=== PATIENT | female | born 1955 | race Caucasian/White ===

== ENCOUNTER 2023-03-13 16:15 | Outpatient (RCR) | payer MEDICARE, SELFPAY ==
--- NOTE | 2023-02-08 07:26 | PT.OPDNX ---
PT [facility] Out[facility] Daily Note PT [facility] Outpatient Daily Note Start: 10/26/22 07:45 Freq: Status: Active Protocol: Document 02/07/23 08:00 AMS (Rec: 02/07/23 16:46 AMS [id number]) E-signed By Rhonda Ramirez, PT PT OP Daily Progress Note Visit Information Note Type Daily Note,Recert/Progress Note,Re-Evaluation Visit Number [id number] Physician Authorized Visits Eval and treat Insurance Information Recert Due Date 04/15/23 Insurance Name [facility] [employer] Insurance Information/Comments [facility] Medical Diagnosis Right knee IT band syndrome Treating Diagnosis Right knee pain, limited hip/ knee ROM, soft tissue restriction Referring MD Sagastume Subjective Subjective Patient states her lateral hip and posterior buttock symptoms have improved overall , but now feels it more in her posterior knee. This started approximately 1-2 weeks ago without any change in routine or identifiable injury. Denies numbness or tingling. Increased pain with going downstairs > upstairs and difficulty bending her knee when she does. Has to lock her knee to go down the stairs to avoid pain. She is here due to feeling like symptoms have not resolved completely and significant increase in posterior knee pain. Does have some knee arthritis on imaging, but this hasn't bothered her in the past. Does have some audible painless crepitus bilaterally. Describes posterior knee pain as sometimes moving down to the lateral ankle, especially with driving. Aggravating factors include pressing down on gas pedal, performing stairs, walking, and squatting . No change in symptoms with coughing or sneezing, no back pain. Denies locking, clicking or catching. No swelling that she has noticed. Pain Comments 0/10 at rest, 9 or 10/10 at worst w/ movement Precautions Treatment Precautions/Contraindications PMH: heart condition ( ventricular premature beats, palpitations), arthritis Home Exercise Home Exercise Comments Access Code: [email or web address] URL: [email or web address] Date: 02/07/2023 Prepared by: Rhonda Ramirez Exercises - Seated Isometric Knee Extension - 1 x daily - 7 x weekly - 3 sets - 30-45 seconds hold - Hamstring Bridge - 1 x daily - 4 x weekly - 3 sets - 12 reps Objective Other/Pertinent Objective GAIT ASSESSMENT: Ambulates with heel-toe, non-antalgic gait, decreased right knee flexion OBSERVATION: Swelling: None noted FUNCTIONAL MOBILITY Double leg squat: To 90, pain w/ deeper knee flexion, quad dominant Step down: Poor eccentric control on right KNEE ROM R: 5-0-140 L: 5-0-140 HIP ROM All pain-free and WNL LUMBAR ROM Full and pain-free LLE MMT: Hip flexion: R 4/5 L 5/5 Hip abduction: R 4/5 L 5/5 Hip extension: R 4+/5 L 5/5 Knee flexion: R */5 (strong but painful) L 5/5 Knee extension: R */5 (strong but painful) L 5/5 END RANGE QUAD CONTROL Straight leg raise: No quad lag noted, WNL Heel pop: Symmetrical, pain- free SPECIAL TESTS Knee Ligamentous: -Varus 0: - -Varus 30: + for pain, no laxity -Valgus 0: - -Valgus 30: - -Lachmans: - Knee Meniscus: -Deep Knee Bend: + -Knee Hyperextension: - -Tony?s: -, mild soreness -Joint Line Palpation: - JOINT MOBILITY/PALPATION TTP over posterior knee over lateral hamstring insertion, mild TTP over ITB, otherwise no other TTP Patient Instructed in Risks/Benefits Yes Therapeutic Exercise Therapeutic Exercise Minutes (minutes) 15 Therapeutic Exercise: To Restore Patient was educated on Functional Status anatomy, physiology as it relates to current condition and HEP with use of handout/ [employer]. Patient verbalizes understanding and agrees with POC/goals Education: -POC with review of goals and progress since start of PT -Soreness rules with goal of symptoms returning to baseline within 24 hours and that evening Pt educated in the following exercises to improve range of motion, tissue tolerance, and/ or strength with verbal/ tactile cues as necessary: Access Code: [email or web address] URL: [email or web address] Date: 02/07/2023 Prepared by: Rhonda Ramirez Exercises - Seated Isometric Knee Extension - 1 x daily - 7 x weekly - 3 sets - 30-45 seconds hold - Supine Bridge - 1 x daily - 4 x weekly - 3 sets - 12 reps -Also briefly trialed isometric wall sits, which was uncomfortable in bilateral knees w/ crepitus Treatment Minutes Untimed Code Treatment Minutes 25 Timed Code Treatment Minutes 15 Total Treatment Time 40 Billing Units Therapeutic Exercise Units 1 Re-Evaluation Units 1 Assessment/Impression Assessment/Impression Allan returns to physical therapy with near resolution of posterior buttock/lateral hip symptoms, but significant increase in pain localized over posterior knee. Of note, patient has been imaged before , which showed bilateral knee arthritis, but this hasn't bothered her much in the past. No known injuries when symptoms worsened one or two weeks ago. On exam, patient demonstrates full and pain- free knee ROM, normal hip/ lumbar exam, no visible swelling, pain with resisted hamstring and quad activation as well as varus testing, no laxity with ligament testing, and decreased eccentric quad control, leading to difficulties going down > upstairs, squatting, driving ( hitting gas pedal), and walking longer distances. Updated HEP to include quad/ hamstring loading within tolerance and will reassess in 2 weeks. Patient would benefit from continued skilled PT services to address above deficits. Plan of Care Physical Therapy Goals In 4 weeks (11/23/22) Pt will be able to ascend/ descend 1 flight of stairs with reciprocal gait in order to perform ADLs pain free. PROGRESSING Pt will demonstrate full and pain free knee and hip ROM in order to perform all ADLs including don/doffing shoes/ socks In 8 weeks (12/21/22) MET Pt will be able to walk greater than 60 minutes, including A/D hills with <1/10 knee pain in order to negotiate farm PROGRESSING Pt will exhibit 9 pt improvement in LEFS Outcome measure to demonstrate functional improvement and progress towards goals. PROGRESSING Daily Plan of Care Continue per POC Daily Plan of Care Comments Progress quad/hamstring loading as tolerated Recertification Information Initial Certification Date 01/20/23 Recertification Start Date 01/20/23 Recertification Due Date 04/15/23 Reasons to Continue Skilled Therapy Patient is a 67 year old female that was originally referred to therapy with diagnosis of right ITB syndrome. Patient reports almost complete improvement of posterior buttock/lateral hip symptoms with skilled physical therapy services. She reports back to therapy with significant worsening of posterior knee pain 1-2 weeks ago without any known re- injury. Demonstrates pain with resisted hamstring/quad contraction. Patient has shown improvement in physical therapy, demonstrating decreased pain, increased range of motion, increased strength, and increased tolerance to activity and load . Patient continues to present with pain, decreased strength , and decreased tolerance to activity. Patient would benefit from continued skilled PT services to address these issues and to maximize function. Continued Plan of Care and Interventions Joint mobilizations Gait training Therapeutic exercise Manual therapy Provider Signature Shows Agreement With POC & Medical Necessity
== END 2023-05-26 17:24 | disposition home or self-care (01) ==
PROVIDERS: PCP Family Medicine; Visit Provider Orthopaedic Surgery
DX: M76.31 Iliotibial band syndrome, right leg (principal); M25.561 Pain in right knee; Z74.09 Other reduced mobility; Z51.89 Encounter for other specified aftercare
CPT/HCPCS: 97110; 97140; 97161; 97164

== ENCOUNTER 2023-10-27 11:30 | Outpatient (RCR) | payer MEDICARE, SELFPAY ==
--- NOTE | 2023-09-22 14:20 | PT.OPEX ---
PT [facility] Eval PT [facility] Outpatient Eval Start: 09/22/23 08:50 Freq: Status: Active Protocol: Document 09/22/23 08:51 AMS (Rec: 09/22/23 14:16 AMS [id number]) E-signed By Rhonda Ramirez PT Physical Therapy Outpatient Evaluation Insurance Information Recert Due Date 12/16/23 Insurance Name Medicare B Medical Diagnosis Left hip bursitis Treating Diagnosis Left hip pain Muscle weakness Referring MD Gadiel Sagastume MD Subjective Subjective Patient is a 67-year-old female who returns to physical therapy for left lateral hip pain. She states she bumped it on a countertop a few months ago in May, and it has been hurting since then; did notice some bruising at this time that has since resolved. It's been getting better since then. She has had ongoing difficulty with right anterior and medial knee pain, but no more lateral right hip pain; X -rays from 06/13 showed end- stage patellofemoral joint arthritis bilaterally. She just had a steroid injection in her knee on 08/29. She reports this was somewhat helpful. PMHx significant for L hip femoral neck fracture in 2018 managed surgically; recent X-rays show this remains stable. Also notes some mild low back pain that has been going on for about a week after lifting a heavier object. Denies N/T or locking, clicking/catching. Pain characteristics: Localized to the lateral posterior hip, feels achey with certain movements/ activities, eases with rest, tender to pressure Aggravating factors: sitting funny, lying on left side, leaning onto it/pressure over it. Walking/stairs do not bother it. Easing factors: Rest, rubbing muscle rub on it. Previous treatments: Has had injections in 2019 after ORIF surgery, none since then Current functional limitations : lying on left side, leaning on it, sitting Imaging: AP Pelvis and Cross- table lateral views of the left hip were obtained on from [facility], were ordered by a different physician, were reviewed by me, and show cannulated screw fixation of previous femoral neck fracture which is now healed. Flattening of the femoral head on the left with mild joint space narrowing of both hips, consistent with mild to moderate hip osteoarthritis bilateral. No fractures or acute osseous abnormalities. Compared to x-rays obtained , there has been interval healing of the left subcapital femoral neck fracture. Screws remain well positioned with no evidence of loosening or other complications. No significant progression of hip degenerative changes. -Dr. Smith, 06/20/23 PMHx: see below Social history/current exercise: She is currently sedentary, tries to go on walks in town a few times per week to peruse the shops. No other formal exercise or strength training. Goals: Less pain in left hip Pain Comments 0/10 at best/rest 5/10 at worst, short lasting Date of Last Physician Visit 08/30/23 Current Work Status Retired Occupation Retired Preferred Name Allan Precautions Treatment Precautions/Contraindications Arthritis GERD (gastroesophageal reflux disease) Elevated cholesterol Ventricular premature beats Palpitations S/P ORIF (open reduction internal fixation) fracture of left hip 06/22/17 Objective Other/Pertinent Objective Gait assessment: Ambulates with normalized gait. BALANCE Single leg stance: R 14.87 sec , L 22 sec FUNCTIONAL MOBILITY Double leg squat: To 45 deg, no hip pain, R anterior/medial knee pain, quad dominant KNEE ROM L: 0-0-138 R: 0-0-135 END RANGE QUAD CONTROL Straight leg raise: Independent without quad lag LUMBAR ROM Full and pain-free with exception of mild limitation into B sidebending (to mid- thigh) and extension HIP ROM Flexion: 110/110 Extension: 15/15 Internal Rotation: Moderately limited L, mildly limited R External Rotation: 45/45 Abduction: WNL LE MMT: Hip flexion: R 4+/5 L 4+/5 Hip abduction: R 4-/5 L 3+/5 Hip extension: R 4-/5 L 4-/5 Knee flexion: R 4+/5 L 4/5 Knee extension: R 4+/5 L 4+/5 SPECIAL TEST Hip Labral/Intra-articular Pathology: -ELSI: - -FADIR: - -Log Roll: - Hip impingement: -[place]: - JOINT MOBILITY/PALPATION: Mild tenderness to palpation just distal to greater trochanter and over ITB. No TTP over greater trochanter, lumbar spine, or posterior gluteals. Functional Test Performed & Score LEFS: 74/80 = 92.5% Assessment Assessment/Impression Pt is a 67 -year-old female who presents with concerns of chronic left lateral hip pain and low severity and irritability. Patient referred to therapy with diagnosis of left hip bursitis. Symptoms began after bumping her hip against a countertop in May with subsequent bruising that has since resolved. X-rays were unremarkable. PMHx significant for left hip fracture with ORIF in 2018 and bilateral knee arthritis. Symptoms have been improving overall. On exam, patient also demonstrates notable objective findings including mildly limited hip IR ROM bilaterally without pain, normal lumbar exam, pain-free hip ROM, mild tenderness over lateral hip/ gluteals and ITB, and decreased hip strength, leading to difficulties with lying on her left side, sitting, and leaning to her left side. No hip pain with walking, stairs, or standing. Pt benefits from reassurance regarding symptoms and is able to complete strengthening exercises without pain. Patient is appropriate for skilled physical therapy services to address the above deficits. Pt was agreeable with plan of care and goals established. Primary Functional Limitations lying on her left side, sitting, and leaning to her left side Plan of Care Rehabilitation Potential Good Physical Therapy Goals In 2 sessions: Pt will demonstrate consistent HEP compliance to ensure progress in reaching established goals during course of care. In 6-8 sessions: Patient is able to sleep with waking 0-1 times per week due to pain. Pt will sit > 1 hour without onset of hip pain. Pt will improve hip strength to >4/5 with MMT for hip abduction/extension for long- term management of symptoms. Coordination/Communication With Referral Source Treatment Plan/Direct Interventions Joint Mobilization,Manual Therapy,Neuromuscular Re-ed, Self-Care/Home Management, Therapeutic Activities, Therapeutic Exercises Frequency/Duration 1x/week for 6-8 sessions Patient Will Be Discharged From Therapy Completion of LTG(s), Independent w/HEP, Independently Progressing Evaluation Billing Untimed Code Treatment Minutes 25 Complexity Low Certification Information Initial Certification Date 09/22/23 Ending Certification Date 12/16/23 Provider Signature Shows Agreement With POC & Medical Necessity Physician Signature & Date Requested Please Sign/Date Here Physician Comment/Change : Physician NPI Number #
== END 2023-10-31 09:47 | disposition home or self-care (01) ==
PROVIDERS: PCP Family Medicine; Visit Provider Orthopaedic Surgery
DX: M70.72 Other bursitis of hip, left hip (principal); M25.552 Pain in left hip; M62.81 Muscle weakness (generalized); Z51.89 Encounter for other specified aftercare
CPT/HCPCS: 97110; 97140; 97161

== ENCOUNTER 2024-10-24 14:55 | Emergency (ER) | payer MEDICARE, SELFPAY ==
[2024-10-24 15:04] VITALS: BP 156/73; PULSE 78; RESP 16; TEMP 36.8; O2SAT 95; BMI 23.0
[2024-10-24 16:14] VITALS: BP 102/54; PULSE 66; RESP 20; O2SAT 95
--- NOTE | 2024-10-24 16:17 | ED_ITS ---
HPI - General Adult General Date Seen: 10/24/24 Chief complaint: Unspecified Complaint, Adult Stated complaint: pvcs Time Seen by Provider: 10/24/24 15:58 Source: patient Mode of arrival: ambulatory Limitations: no limitations History of Present Illness HPI narrative: Patient is a 69-year-old female presenting to the emergency department for concerns of palpitation. She was seen at the [facility] in [place] yesterday for similar symptoms. She states she will feel like she will have palpitations with intermittent pauses. Symptoms started yesterday and they seem to get better throughout the afternoon but occurred again today. She was told she has PVCs into return for re-evaluation if symptoms persist. She continues to have the palpitations so she came in. Denies feeling lightheaded. Denies any chest pain or shortness of breath. Denies any recent sickness. Is currently on flecainide for paroxysmal AFib. Has had reveals 0 patches which she was told had PVCs on them before. Denies any stressors. No other concerns noted Related Data Home Medications ?Medication ?Instructions ?Recorded ?Confirmed flecainide 50 mg tablet 50 mg PO 10/20/22 08/30/23 metoprolol succinate 25 mg mg PO .Bedtime 10/20/22 08/30/23 tablet,extended release 24 hr simvastatin 20 mg tablet 10 mg PO .Bedtime 10/20/22 10/24/24 famotidine 20 mg tablet 20 mg PO BID 06/13/23 10/24/24 Allergies Allergy/AdvReac Type Severity Reaction Status Date / Time No Known Drug Allergies Allergy Verified 10/24/24 15:04 Review of Systems Status of ROS: Reports: 10 or more systems reviewed and unremarkable except as noted in History and below [facility] Medical History Arthritis ?M19.90 - Unspecified osteoarthritis, unspecified site (ICD-10) GERD (gastroesophageal reflux disease) ?K21.9 - Gastro-esophageal reflux disease without esophagitis (ICD-10) Elevated cholesterol ?E78.00 - Pure hypercholesterolemia, unspecified (ICD-10) Ventricular premature beats ?I49.3 - Ventricular premature depolarization (ICD-10) Palpitations ?R00.2 - Palpitations (ICD-10) Fracture of right distal radius ?S52.501A - Unspecified fracture of the lower end of right radius, initial encounter for closed fracture (ICD-10) Surgical History Previous section ?Z98.891 - History of uterine scar from previous surgery (ICD-10) S/P ORIF (open reduction internal fixation) fracture (06/22/17) ?Z98.890 - Other specified postprocedural states (ICD-10) ?Z87.81 - Personal history of (healed) traumatic fracture (ICD-10) Social History Smoking Status: Never smoker Do you use any of these nicotine containing products: None Second hand tobacco smoke exposure: No Exam Narrative: Exam Narrative: Const: Well-nourished, Well-developed, in no distress Eyes: PERRL, no conjunctival injection, and symmetrical lids HENT: Atraumatic external nose and ears. Moist mucous membranes. Neck: Symmetric, trachea midline, No thyromegaly. CVS: RRR, No murmurs or gallops. Peripheral pulses 2+ and equal in all extremities RESP: Unlabored respiratory effort. Clear to auscultation bilaterally. GI: Nontender/Nondistended, No rebound or guarding. MSK:Extremities w/o deformity, Normal Active ROM Skin: Warm, Dry. No rashes or lesions. Neuro: Normal Muscle tone, No focal neurological deficits. Psych: Awake, Alert, & Oriented x3. Appropriate mood and affect. Const: Vital Signs, click to edit/add: Vital Signs - 24 hr 10/24/24 15:04 Temperature 98.3 F Pulse Rate [Pulse Oximeter] 78 Respiratory Rate 16 Blood Pressure [Ri ght Upper Arm] 156/73 H Pulse Oximetry 95 Oxygen Delivery Me thod Room Air Course Vital Signs Vital signs: Initial Vital Signs Temperature 98.3 F 10/24/24 15:04 Temperature Source Temporal Artery Scan 10/24/24 15:04 Pulse Rate 78 10/24/24 15:04 Respiratory Rate 16 10/24/24 15:04 Blood Pressure 156/73 H 10/24/24 15:04 Blood Pressure Mean 100 10/24/24 15:04 Pulse Oximetry 95 10/24/24 15:04 Oxygen Delivery Method Room Air 10/24/24 15:04 Vital Signs Temperature 98.3 F 10/24/24 15:04 Pulse Rate 78 10/24/24 15:04 Respiratory Rate 16 10/24/24 15:04 Blood Pressure 156/73 H 10/24/24 15:04 Pulse Oximetry 95 10/24/24 15:04 Oxygen Delivery Method Room Air 10/24/24 15:04 Temperature 98.3 F 10/24/24 15:04 Pulse Rate 78 10/24/24 15:04 Respiratory Rate 16 10/24/24 15:04 Blood Pressure 156/73 H 10/24/24 15:04 Pulse Oximetry 95 10/24/24 15:04 Oxygen Delivery Method Room Air 10/24/24 15:04 Medical Decision Making MDM Narrative Medical decision making narrative: Patient is a 69-year-old female presenting to the emergency department for concerns of palpitations. She states she was told these palpitations are from PVCs. Is not symptomatic at this time. Will check an EKG to look for any arrhythmias along during a BMP, CBC, magnesium, troponin. Place her on quality assurance monitor final. lab work returned showing no concerning abnormalities. EKG shows no concerning findings. There are PVCs as previously mentioned. On my review vital signs are stable throughout time in in the emergency department. Oximetry stayed in the mid to high 90s. front desk monitor showed no concerning arrhythmias. she is doing well I spoke to her about a zio patch. after shared decision-making she declined at this time by informed her that this persist may not hurt to follow- up with the primary care provider to get 1. She is agreeable to this plan Lab Data Labs: Lab Results 10/24/24 Range/Units 16:50 WBC 6.22 (4.50-11.00) K/uL RBC 4.40 (4.00-5.20) m/uL Hgb 13.4 (12.0-16.0) gm/dL Hct 41.2 (33.0-51.0) % MCV 94 (80-100) fL MCH 31 (26-34) pg MCHC 33 (32-36) gm/dL RDW Coeff of Otoniel 13.0 (11.5-15.5) % Plt Count 286 (140-440) K/uL Neut % (Auto) 55.4 (42.0-72.0) % Lymph % (Auto) 28.8 (20-44) % [place] % (Auto) 13.7 H (0.0-11.0) % Eos % (Auto) 1.3 (0.0-7.0) % Baso % (Auto) 0.6 (0.0-3.0) % Neut # (Auto) 3.45 (1.7-7.0) K/uL Lymph # (Auto) 1.79 (0.90-2.90) K/uL [place] # (Auto) 0.90 (0.00-0.90) K/UL Eos # (Auto) 0.08 (0.00-0.50) K/uL Baso # (Auto) 0.04 (0.00-0.30) K/uL Abs Immat Gran (auto) 0.01 (0.00-0.30) K/uL Imm/Tot Granulo (auto) 0.2 % Sodium 141 (135-149) mmol/L Potassium 4.4 (3.6-5.1) mmol/L Chloride 106 (96-114) mmol/L Carbon Dioxide 28 (20-32) mmol/L Anion Gap 7 (7-15) mEq/L BUN 16 (7-30) mg/dL Creatinine 0.8 (0.5-1.5) mg/dL Estimated Creat Clear 54.32 Estimated GFR 80 ml/min Glucose 83 (60-115) mg/dL Calcium 9.2 (8.4-10.6) mg/dL Magnesium 2.3 (1.5-2.6) mg/dL Troponin I < 0.01 (0.01-0.04) ng/mL ECG Data Attestation: I personally reviewed and interpreted this ECG as follows: Prior ECG tracings: not available for review Interpretation: normal sinus rhythm with a rate of 61 beats per minute, normal intervals, norm al axis, no ST or T-wave abnormalities. There are PVCs. Discharge Plan Discharge Clinical Impression: Frequent PVCs Patient Disposition: Home, Self-Care Condition: Stable Instructions: Premature Ventricular Contractions (ED) Additional Instructions: if you continue to have these palpitations I recommend following up with the primary care provider again about a possible heart monitor. Return to emergency department for new or worsening symptoms Prescriptions: No Action famotidine 20 mg tablet 20 mg PO BID metoprolol succinate 25 mg tablet extended release 24 hr PO .Bedtime flecainide 50 mg tablet 50 mg PO simvastatin 20 mg tablet 10 mg PO .Bedtime Follow Up/Referrals: Breanna Ayers MD [Primary Care Provider] - Stand Alone Forms: [employer] Info Instructions
[2024-10-24 16:54] LABS: Basophils Absolute Auto 0.04 K/uL (0.00-0.30); Basophils Percent Auto 0.6 % (0.0-3.0); Eosinophils Absolute Auto 0.08 K/uL (0.00-0.50); Eosinophils Percent Auto 1.3 % (0.0-7.0); Hematocrit 41.2 % (33.0-51.0); Hemoglobin* 13.4 gm/dL (12.0-16.0); Immature Granulocytes Abs Auto 0.01 K/uL (0.00-0.30); Immature Granulocytes Pct Auto 0.2 %; Lymphocytes Absolute Auto 1.79 K/uL (0.90-2.90); Lymphocytes Percent Auto 28.8 % (20-44); Mean Corpuscular HGB Conc 33 gm/dL (32-36); Mean Corpuscular Hemoglobin 31 pg (26-34); Mean Corpuscular Volume 94 fL (80-100); Monocytes Percent Auto 13.7 % (0.0-11.0); Neutrophils Absolute Auto 3.45 K/uL (1.7-7.0); Neutrophils Percent Auto 55.4 % (42.0-72.0); Platelet Count* 286 K/uL (140-440); White Blood Count* 6.22 K/uL (4.50-11.00)
[2024-10-24 16:57] LABS: Slide Review Reflex No
[2024-10-24 17:07] VITALS: BP 103/70; PULSE 68; RESP 16; O2SAT 96
[2024-10-24 17:13] LABS: Chloride* 106 mmol/L (96-114); Potassium* 4.4 mmol/L (3.6-5.1); Sodium* 141 mmol/L (135-149)
[2024-10-24 17:16] LABS: Anion Gap 7 mEq/L (7-15); Blood Urea Nitrogen* 16 mg/dL (7-30); Calcium* 9.2 mg/dL (8.4-10.6); Carbon Dioxide* 28 mmol/L (20-32); Creatinine* 0.8 mg/dL (0.5-1.5); Est. Creatinine Clearance* 54.32; Estimated Glomerular Filt Rate 80 ml/min; Glucose* 83 mg/dL (60-115); Magnesium* 2.3 mg/dL (1.5-2.6)
[2024-10-24 17:37] LABS: Troponin I* < 0.01 ng/mL (0.01-0.04)
[2024-10-24 17:55] VITALS: BP 102/70; PULSE 62; RESP 16; O2SAT 96
== END 2024-10-24 17:53 | disposition home or self-care (01) ==
PROVIDERS: Emergency Provider Student in an Organized Health Care Education/Training Program; PCP Family Medicine
DX: I49.3 Ventricular premature depolarization (principal)
CPT/HCPCS: 36415; 80048; 83735; 84484; 85025; 99283; 99284

== ENCOUNTER 2025-03-13 11:29 | Outpatient (CLI) | payer MEDICARE, SELFPAY | END 2025-03-13 11:30 | disposition home or self-care (01) | PROVIDERS: PCP Family Medicine; Visit Provider Internal Medicine | DX: I49.3 Ventricular premature depolarization (principal) | CPT/HCPCS: 80048; 80076 ==

== ENCOUNTER 2025-06-08 09:31 | Emergency (ER) | payer MEDICARE, SELFPAY ==
--- OUTSIDE RECORDS SUMMARY | 2025-06-08 09:33 | XMS_ITS | Clinical Summary ---
Author Organization [facility] Address [address] [place] [address] Care Team Providers Care Furniture Delivery Driver Name Role Phone Breanna Ayers MD Primary Care Prov ider Allergies No known active allergies Medications MedicationSigDispense QuantityRefillsLast FilledStart DateEnd DateStatus famotidine (PEPCID) 20 mg tablet Indications:Gastroesophageal reflux disease without esophagitisTake 1 Tablet (20 mg) by mouth two times daily. 180 Tablet 5Active metoprolol succinate (TOPROL XL) 25 mg Sustained-Release tablet Indications:Paroxysmal atrial tachycardia (HC)Take 1 Tablet (25 mg) by mouth once daily. Needs visit before next refill 90 Tablet 3095Active simvastatin (ZOCOR) 20 mg tablet Indications:DyslipidemiaTake 0.5 Tablets (10 mg) by mouth at bedtime. 45 Tablet 5Active flecainide (TAMBOCOR) 50 mg tablet Indications:Paroxysmal atrial tachycardia (HC)Take 1.5 Tablets (75 mg) by mouth every 12 hours. 270 Tablet 5Active Active Problems ProblemNoted DateDiagnosed DateParoxysmal uiqcrdrctkl85/30/2025Other osteoporosis without current pathological gazxrdgi41/29/2019Closed fracture of neck of left femur with routine drgxcxl4306/26/2017Osteoarthritis of hand, left 05/20/2013FH: colon kliqgx5911/01/2012 Overview (11/18/2013): Colonoscopy 10/2013 polyp repeat in 5 years Dyslipidemia Resolved Problems ProblemNoted DateDiagnosed DateResolved DateStatus post total replacement of left hipAnticoagulation monitoring, special range [Z79.01] Paroxysmal atrial rhxlyjbfyhz34/14/2023 Encounters DateTypeDepartmentCare KjpuThiluvyfndc23/20/2025Nurse Triage [facility] [address] [place] [address] Breanna Ayers MD Hand Tpxyfn7005/06/2025 8:40 AM CSTOffice Visit [facility] [address] [place] [address] Breanna Ayers MD Zvexzem3505/05/2025 10:00 AM CSTAncillary Procedure [facility] [address] [place] [address] 05/05/20257663Qwqcui86/13/2025Telephone [facility] [address] [place] [address] Breanna Ayers MD Other (Jury Duty )04/03/2025Refill [facility] [address] [facility] [address] [place] [phone] Ernie Chin MD Refill Request (Flecainide)03/27/2025Telephone [address] [place] [address] Ernie Chin MD Results (zio)03/25/2025Orders Only [facility] [address] [place] [address] Annelise Batres 2 scans: (2-Ord) DARWIN QUEVEDO MONITOR FINAL REPORT , Telephone [facility] [address] [facility] [address] [place] [phone] Ernie Chin MD FYI03/18/2025 9:05 AM CDTOffice Visit [facility] [address] [place] [address] Breanna Ayers MD Medicare ANNUAL (subsequent) Visit (69 yr/)03/18/2025Orders Only [facility] Scanner 1 scan: (1-Ord) INCOMING RECORDS-LABS, [facility], 5003/18/2025 Jxblqc6403/14/2025Orders Only [facility] Scanner 1 scan: (1-Ord) INCOMING RECORDS-LABS, [facility], 5003/13/2025 11:00 AM CDTOffice Visit [facility] [address] [place] [address] Ernie Chin MD from Last 3 Months Immunizations ImmunizationAdministration DatesNext DueCOVID-19 vaccine (Understory-BioNTech 30mcg/0.3mL) 12YO+ MAZIN-SUCROSE PF, MDV2COVID-19 vaccine (Understory- BioNTHarQen 30mcg/0.3mL) PF, MDV12/12/2020,11/21/2020Influenza RIV4 (Age 18+ Years) PRESERV FREE04/21/2021Influenza, High-dose Quadrivalent Hkilczrnofj73/03/2021, 04/02/2020,03/10/2017,03/08/2016Influenza, NFV142/07/2022,04/24/2022,03/04/2019, 03/20/2017Influenza, IIV4 (=>6mos) MDV02/15/2018,03/10/2017,03/08/2016Influenza, Inactivated IIV3 (Age 65+ Years) Preserv Free03/18/2025,03/13/2024neumococcal Conj 20-valent (Prevnar 20)03/13/2024Td (Age >=7 Years)09/18/1998Tdap11/01/2012, 08/01/2007 Family History Medical HistoryRelationNameCommentsAtrial fibrillationBrother 1Good Health Brother 2Good HealthDaughterCancer-colonFatherOtherMotheratrial fibrillationGood HealthSisterGood HealthSonCancer-breastNo Family HistoryCancer-ovarianNo Family HistoryDiabetesNo Family HistoryRelationNameStatusCommentsBrother 1Brother 2 DaughterFatherDeceasedMotherAliveSisterSon Social History Tobacco UseTypesPacks/DayYears UsedDateSmoking Tobacco: NeverSmokeless Tobacco: Never Tobacco Cessation:Counseling Given: No Alcohol UseStandard Drinks/WeekCommentsNo0 (1 standard drink = 0.6 oz pure alcohol)PHQ-2AnswerDate RecordedPHQ-2 TOTAL [id number] Connections AnswerDate RecordedDo you often feel lonely or isolated from those around you?0 08/27/2024Financial Resource StrainAnswerDate RecordedDifficulty of Paying Living Ysfjpkon502/11/2025Difficulty of Paying Living ExpensesNot on file 08/27/2024Food InsecurityAnswerDate RecordedDo you worry your food will run out before you are able to buy more?Transportation NeedsAnswerDate RecordedDoes lack of transportation keep you from medical appointments?1 08/27/2024Does lack of transportation keep you from work, meetings or getting things that you need?Housing StabilityAnswerDate RecordedWhat is your housing situation today?UtilitiesAnswerDate RecordedDo you have trouble paying for utilities (for example, heat, electricity, water, phone)?1 08/27/2024CommentsNoSex and Gender InformationValueDate RecordedSex Assigned at BirthNot on fileLegal ZxuNvanzw00/14/2013 8:24 AM CSTGender Identity Not on fileSexual OrientationNot on file Last Filed Vital Signs Vital SignReadingTime TakenCommentsBlood Ffjwxfyt296/7405/06/2025 8:49 AM SUPERINTENDENT NONSELLING Gzcuc108905/06/2025 8:49 AM GTDBujlrgcsbye75.8 ??C (98.2 ??F)10/23/2024 11:26 AM CDTRespiratory Yost850012/31/2020 2:15 PM CDTOxygen Mzkwetjghk27%05/06/2025 8:49 AM CSTInhaled Oxygen Concentration--Tsqcyg55.5 kg (148 lb 12.8 oz)05/06/2025 8:49 AM XPCMhjrhx756 cm (5' 8.5)03/18/2025 11:37 AM CDTBody Mass Index22.3 03/18/2025 11:37 AM CDT Plan of Treatment Health MaintenanceDue DateLast DoneCommentsZoster (shingles) series for age 50+ (1 of 2)2006DEXA/DXA scan for age 65+/Tetanus booster /, 10/31/2007 (Completed outside of [facility]), 08/01/2007, Additional history existsFecal testing non-DNA (FIT,FOBT,iFOBT) for age 45-75 , 01/04/2021OVID-19 vaccine series ( season) , 02/10/2022, 12/12/2020, Additional history existsBMI (ht and wt on same day) for age 18+, 03/13/2025, 03/13/2024, Additional history existsDepression screening for age 12+, 03/13/2025, 03/13/2024, Additional history existsMedicare Wellness for age 65+ , 03/13/2024, 04/12/2023, Additional history existsMammogram for age 45-756107/05/2024, 04/19/2023, 03/10/2020, Additional history existsLipids for age 45-7509, 03/13/2024, 04/12/2023, Additional history existsRSV vaccine for adults or (1 - 1-dose 75+ series)10/10/2031Hepatitis C screening for age 18-99Stvipqqub39/29/2019 Pneumococcal series for age 50+Dknmjcbbr28/25/2024Influenza VaccineCompleted 03/18/2025, 03/13/2024, 03/20/2023, Additional history existsHepatitis B series for 19+Aged OutNo longer eligible based on patient's age to complete this topic Procedures Procedure NamePriorityDate/TimeAssociated DiagnosisCommentsXR MAMMO NEVA BILAT WOXKIBYdnfwjm74/17/2025 10:10 AM SUPERINTENDENT NONSELLING Breast cancer screening by mammogram LIPID PANEL W REFLEX MEASURED ROIXerdmlt94/30/2025 10:10 AM CDT Hyperlipidemia, unspecified hyperlipidemia type BASIC METABOLIC FORXAGasjgnp68/30/2025 10:10 AM CDT Screening for diabetes mellitus (DM) SCAN CORRESP-LABORATORY NYPCGHG6903/18/2025 12:00 AM CDT SCAN CORRESP-LABORATORY XNRTRUR7403/14/2025 12:00 AM CDT EXTENDED EXPZKNDzclbmy25/25/2025 12:00 AM CDT Re-entry ventricular arrhythmia (HC) OCCULT BLOOD IFOBT RLVDDTzkghzo19/26/2023 10:29 AM CDT Screening for colon cancer ANTI POGJunmhnv60/29/2019 3:22 PM CDT Encounter for hepatitis C screening test for low risk patient XR DXA BONE DENSITY 2 SITES YYXGNYparkbu35/31/2018 3:07 PM CDT Closed fracture of left hip with routine healing, subsequent encounter from Last 3 Months or Most Recently Relevant to Health Maintenance Results * XR MAMMO NEVA BILAT SCREEN [[id number]] (05/05/2025 10:10 AM SUPERINTENDENT NONSELLING)Anatomical Region LateralityModalityBREASTS, Breast Left, Breast RightBilateralMammography Specimen (Source)Anatomical Location / LateralityCollection Method / Volume Collection TimeReceived Time Impressions 05/05/2025 2:13 PM SUPERINTENDENT NONSELLING There is no radiographic evidence for malignancy. Recommend annual mammograms. MAMMOGRAM ASSESSMENT: ??ACR 1 Negative PATIENTS: You will also receive a letter with your examination results in an easy to read format. ??If you have questions about your results, please contact your referring provider. Narrative 05/05/2025 2:13 PM SUPERINTENDENT NONSELLING For Patients: As a result of the Century Cures Act, medical imaging exams and procedure reports are released immediately into your electronic medical record. You may view this report before your referring provider. If you have questions, please contact your health care provider. XR MAMMO NEVA BILAT SCREEN [[id number]] CLINICAL HISTORY: ??This is an asymptomatic 69 y.o. patient. INDICATION FOR EXAM: Mammogram Screening. TECHNIQUE: CC and MLO views were obtained. ??This study was evaluated with the assistance of Computer-Aided Detection. Breast Tomosynthesis was used in interpretation. COMPARISON FILM: Yes 04/19/23 [facility] 03/10/20 [facility] [employer] FINDINGS: ??There are scattered areas of fibroglandular density. There are no dominant masses, suspicious micro calcifications or areas of architectural distortion. Authorizing ProviderResult TypeResult StatusCynthia Renetta Ayers MDMAMMO Final Result * (ABNORMAL) LIPID PANEL W REFLEX MEASURED LDL (03/18/2025 10:10 AM CDT) ComponentValueRef RangeTest MethodAnalysis TimePerformed AtPathologist SignatureCHOLESTEROL, UAPIU017(H)<200 mg/dL03/19/2025 4:17 AM CDTQUEST IMUYPLXDBKVGXBHQPGMZYRMB85<150 mg/dL03/19/2025 4:17 AM CDTQUEST DIAGNOSTICSHDL AYFTADNRWSB85> OR = 50 mg/dL03/19/2025 4:17 AM CDTQUEST DIAGNOSTICSNON HDL JRAKYFOTJFX539<130 mg/dL (calc)03/19/2025 4:17 AM CDTQUEST DIAGNOSTICSComment: For patients with diabetes plus 1 major ASCVD risk factor, treating to a non-HDL-C goal of <100 mg/dL (LDL-C of <70 mg/dL) is considered a therapeutic option. CHOL/HDLC RATIO2.5<5.0 (calc)03/19/2025 4:17 AM CDT[facility] LDL-QHKDRGJQBOO682(H)mg/dL (calc)03/19/2025 4:17 AM CDTQUEST DIAGNOSTICSComment: Reference range: <100 Desirable range <100 mg/dL for primary prevention; <70 mg/dL for patients with CHD or diabetic patients with > or = 2 CHD risk factors. LDL-C is now calculated using the Anish calculation, which is a validated novel method providing better accuracy than the Friedewald equation in the estimation of LDL-C. Carter JOE et al. NICHELLE. 2013;310(69): 1327-9855 (http://education.[employer]/faq/RIS939) Specimen (Source)Anatomical Location / LateralityCollection Method / Volume Collection TimeReceived TimeBloodBLOOD SPECIMEN / UnknownQuest Collect / Unknown 03/18/2025 10:10 AM CDT03/18/2025 10:10 AM CDT Narrative [facility] - 03/19/2025 4:17 AM CDT FASTING:UNKNOWN FASTING: UNKNOWN Authorizing ProviderResult TypeResult StatusCynthia Renetta Ayers MD CHEMISTRYFinal ResultPerforming OrganizationAddressCity/State/ZIP CodePhone Number [employer] [address] [phone], * (ABNORMAL) BASIC METABOLIC PANEL (03/18/2025 10:10 AM CDT)ComponentValueRef RangeTest MethodAnalysis TimePerformed AtPathologist WqedvcrztIWMSLJ559083 - 146 mmol/L1 4:17 AM CDTQUEST DIAGNOSTICSPOTASSIUM5.13.5 - 5.3 mmol/L 03/19/2025 4:17 AM CDTQUEST DIAGNOSTICSCARBON WQIPFVA5431 - 32 mmol/L 03/19/2025 4:17 AM CDTQUEST QWJAHWSOGWEIGFOWGV6984 - 99 mg/dL03/19/2025 4:17 AM CDTQUEST DIAGNOSTICSComment: ? Fasting reference interval CALCIUM9.58.6 - 10.4 mg/dL03/19/2025 4:17 AM CDTQUEST DIAGNOSTICSCREATININE0.74 0.50 - 1.05 mg/dL03/19/2025 4:17 AM CDTQUEST DIAGNOSTICSBUN/CREATININE RATIOSEE NOTE:6 - 22 (calc)03/19/2025 4:17 AM CDTQUEST DIAGNOSTICSComment: ?? Not Reported: BUN and Creatinine are within ?? reference range. ? EGFR88> OR = 60 mL/min/1.34f84903/19/2025 4:17 AM CDTQUEST DIAGNOSTICSUREA NITROGEN (BUN)167 - 25 mg/dL03/19/2025 4:17 AM CDTQUEST DIAGNOSTICSELECTROLYTE BALANCE6(L)7 - 17 mmol/L (calc)03/19/2025 4:17 AM CDTQUEST DIAGNOSTICSCHLORIDE 38[address] - 110 mmol/L1 4:17 AM CDTQUEST DIAGNOSTICSSpecimen (Source) Anatomical Location / LateralityCollection Method / VolumeCollection Time Received TimeBloodBLOOD SPECIMEN / UnknownQuest Collect / Zbdadul0603/18/2025 10:10 AM CDT03/18/2025 10:10 AM CDT Narrative [facility] - 03/19/2025 4:17 AM CDT FASTING:UNKNOWN FASTING: UNKNOWN Authorizing ProviderResult TypeResult StatusCyelodia Ayers MD CHEMISTRYFinal ResultPerforming OrganizationAddressCity/State/ZIP CodePhone Number [facility] [address] [phone], * SCAN CORRESP-LABORATORY RESULTS (03/18/2025 12:00 AM CDT) Only the most recent of2 resultswithin the time period is included. Narrative Authorizing ProviderResult TypeResult StatusScannerOTHERFinal Result * EXTENDED HOLTER (03/13/2025 12:00 AM CDT) Narrative Authorizing ProviderResult TypeResult StatusErnie Chin MDCARDIAC SERVICES ORDEdited Result - Final * OCCULT BLOOD IFOBT STOOL [[id number]] (04/13/2023 10:29 AM CDT)ComponentValueRef RangeTest MethodAnalysis TimePerformed AtPathologist SignatureSTOOL BLOOD ,CUFRSAynkurerKfdjmpmq19/01/2023 9:19 AM [facility] Specimen (Source)Anatomical Location / LateralityCollection Method / Volume Collection TimeReceived TimeStoolSTOOL SPECIMEN / UnknownNon-Blood / Unknown 04/13/2023 10:29 AM CDT1 10:29 AM CDT Narrative Authorizing ProviderResult TypeResult StatusCyelodia Ayers MD LABORATORYFinal ResultPerforming OrganizationAddressCity/State/ZIP CodePhone Number [facility] [address] [place] [address], * ANTI HCV (01/14/2019 3:22 PM CDT)ComponentValueRef RangeTest MethodAnalysis TimePerformed AtPathologist SignatureHEPATITIS C ANTIBODYNon-Reactive Non-Xybuyxgq14/29/2019 9:35 PM CDTALR[facility] Comment:Antibodies to HCV not detected; does not exclude the possibility of exposure to HCV.Specimen (Source)Anatomical Location / LateralityCollection Method / VolumeCollection TimeReceived TimeBloodBLOOD SPECIMEN / Unknown Venipuncture / Royrgfo6301/14/2019 3:22 PM CDT01/14/2019 3:24 PM CDT Narrative Authorizing ProviderResult TypeResult StatusBreanna Ayers MDSEND OUTSFinal ResultPerforming OrganizationAddressCity/State/ZIP CodePhone Number [facility] [address] [place] [address], [place] * (ABNORMAL) XR DXA BONE DENSITY 2 SITES AXIAL (01/16/2018 3:07 PM CDT) Anatomical RegionLateralityModalitySpine, HIPS, HIPL, HIPROtherSpecimen (Source)Anatomical Location / LateralityCollection Method / VolumeCollection TimeReceived Time Narrative 01/17/2018 5:15 PM CDT Please see scanned document for results of this study. Authorizing ProviderResult TypeResult StatusBreanna Ayers MDDEXA Final Result from Last 3 Months or Most Recently Relevant to Health Maintenance Insurance * Guarantor: Allan Mccray LAccount TypeRelation to PatientDate of BirthPhone Billing AddressPersonal/AneajoFhey61/23/1956 [address] [place] [address] Care Teams Team MemberRelationshipSpecialtyStart DateEnd Date Breanna Ayers MD [address] [place] [address] PCP - GeneralFamily Jhdqjczq51/12/12
[2025-06-08 09:34] VITALS: BP 127/78; PULSE 61; RESP 16; TEMP 36.6; O2SAT 96; BMI 23.4
--- NOTE | 2025-06-08 09:40 | CRLHL7_ITS ---
For Patients: As a result of the Cures Act, medical imaging exams and procedure reports are released immediately into your electronic medical record. You may view this report before your referring provider. If you have questions, please contact your health care provider. Indication: Recent fall. Technique: Left wrist 3 views. Comparison: None. Findings: Bones: Minimally displaced impacted intra-articular radial styloid fracture. No worrisome osseous lesion. Joint spaces: Intra-articular radial styloid fracture. Moderate thumb metacarpal trapezium joint osteoarthrosis. Mild osteoarthrosis elsewhere. Soft tissues: Moderate soft tissue swelling about the wrist. Impression: Minimally displaced impacted intra-articular radial styloid fracture. Dictated by Drake Marin MD @ 06/08/2025 9:59:36 AM (Electronically Signed)
--- NOTE | 2025-06-08 09:48 | ED.GENADULT ---
HPI - General Adult General Chief complaint: Extremity Pain/Injury, Upper Stated complaint: Fall, L wrist injury Time Seen by Provider: 06/08/25 09:40 History of Present Illness HPI narrative: Patient is a 69-year-old woman who unfortunately fell at home 4 days ago. She landed on her outstretched wrist and has significant pain in the left distal radius. She has been bruising in a increasing stiffness and swelling of the left distal radius. She is otherwise uninjured. She has no hand pain elbow pain. She did not hit her head or lose consciousness. Patient in takes no anticoagulants. She is otherwise in her usual state of health. Related Data Home Medications ?Medication ?Instructions ?Recorded ?Confirmed flecainide 50 mg tablet 50 mg PO 10/20/22 03/13/25 metoprolol succinate 25 mg mg PO .Bedtime 10/20/22 03/13/25 tablet,extended release 24 hr simvastatin 20 mg tablet 10 mg PO .Bedtime 10/20/22 03/13/25 famotidine 20 mg tablet 20 mg PO BID 06/13/23 03/13/25 Allergies Allergy/AdvReac Type Severity Reaction Status Date / Time No Known Drug Allergies Allergy Verified 03/13/25 10:56 Review of Systems Status of ROS: Reports: 10 or more systems reviewed and unremarkable except as noted in History and below [facility] Medical History Arthritis ?M19.90 - Unspecified osteoarthritis, unspecified site (ICD-10) GERD (gastroesophageal reflux disease) ?K21.9 - Gastro-esophageal reflux disease without esophagitis (ICD-10) Elevated cholesterol ?E78.00 - Pure hypercholesterolemia, unspecified (ICD-10) Ventricular premature beats ?I49.3 - Ventricular premature depolarization (ICD-10) Palpitations ?R00.2 - Palpitations (ICD-10) Fracture of right distal radius ?S52.501A - Unspecified fracture of the lower end of right radius, initial encounter for closed fracture (ICD-10) Surgical History Previous section ?Z98.891 - History of uterine scar from previous surgery (ICD-10) S/P ORIF (open reduction internal fixation) fracture (06/22/17) ?Z98.890 - Other specified postprocedural states (ICD-10) ?Z87.81 - Personal history of (healed) traumatic fracture (ICD-10) Social History Smoking Status: Never smoker Do you use any of these nicotine containing products: None Second hand tobacco smoke exposure: No Exam Narrative: Exam Narrative: EXAM GENERAL: Patient appears comfortable and well. EYES: No scleral icterus. LYMPH: No supraclavicular or cervical lymphadenopathy. SKIN: Visible skin seen during exam normal or with benign process only. EXT: Obvious swelling and ecchymosis noted distal radio region anteriorly left forearm. HEART: Regular rate and rhythm with no murmurs, rubs, or gallops. LUNGS: Clear to auscultation bilaterally with no crackles or wheezes. ABD: Soft, non tender, non distended. PSYCH: Good eye contact, speech is not pressured. Const: Vital Signs, click to edit/add: Vital Signs - 24 hr 06/08/25 09:34 Temperature 97.8 F Pulse Rate [Pulse Oximeter] 61 Respiratory Rate 16 Blood Pressure [Ri ght Upper Arm] 127/78 Pulse Oximetry 96 Oxygen Delivery Me thod Room Air Course Course ED Course: Patient seen examined. X-ray shows impacted distal radius fracture. I did put her in a short-arm splint. I did explain the nature of her injury and recommended Tylenol Motrin and ice. She states that her wrist feels much better after the splint. She will need follow-up with orthopedics this coming week. Vital Signs Vital signs: Initial Vital Signs Temperature 97.8 F 06/08/25 09:34 Temperature Source Temporal Artery Scan 06/08/25 09:34 Pulse Rate 61 06/08/25 09:34 Respiratory Rate 16 06/08/25 09:34 Blood Pressure 127/78 06/08/25 09:34 Blood Pressure Mean 94 06/08/25 09:34 Blood Pressure Position Sitting 06/08/25 09:34 Pulse Oximetry 96 06/08/25 09:34 Oxygen Delivery Method Room Air 06/08/25 09:34 Vital Signs Temperature 97.8 F 06/08/25 09:34 Pulse Rate 61 06/08/25 09:34 Respiratory Rate 16 06/08/25 09:34 Blood Pressure 127/78 06/08/25 09:34 Pulse Oximetry 96 06/08/25 09:34 Oxygen Delivery Method Room Air 06/08/25 09:34 Temperature 97.8 F 06/08/25 09:34 Pulse Rate 61 06/08/25 09:34 Respiratory Rate 16 06/08/25 09:34 Blood Pressure 127/78 06/08/25 09:34 Pulse Oximetry 96 06/08/25 09:34 Oxygen Delivery Method Room Air 06/08/25 09:34 Discharge Plan Discharge Clinical Impression: Fracture of wrist Patient Disposition: Home, Self-Care Condition: Stable Instructions: Wrist Fracture in Adults (ED) Additional Instructions: Splint as directed Tylenol Motrin Rest Ice Follow-up with orthopedics this week. Activity Level: No Restrictions Discharge Diet: Regular Prescriptions: No Action famotidine 20 mg tablet 20 mg PO BID metoprolol succinate 25 mg tablet extended release 24 hr PO .Bedtime flecainide 50 mg tablet 50 mg PO simvastatin 20 mg tablet 10 mg PO .Bedtime Follow Up/Referrals: Breanna Ayers MD [Primary Care Provider, Family Practice] Stand Alone Forms: MyHealth Info Instructions
== END 2025-06-08 10:26 | disposition home or self-care (01) ==
PROVIDERS: Emergency Provider Internal Medicine; PCP Family Medicine
DX: S52.502A Unspecified fracture of the lower end of left radius, initial encounter for closed fracture (principal); W18.30XA Fall on same level, unspecified, initial encounter
CPT/HCPCS: 29125; 73110; 99283